=== PATIENT | male | born 1955 | race Asian ===

== ENCOUNTER 2019-03-02 09:11 | Day surgery (SDC) | payer OTHER ==
[2019-03-02] MEDS ORDERED: MIDAZOLAM 1 MG/ML 2 ML INJ ×2 (16:02)
[2019-03-02] MEDS ORDERED: FENTAnyl 50 MCG/ML VIAL (16:02)
== END 2019-03-02 15:20 | disposition home or self-care (01) ==
LOC: GIL 09:11
DX: Z12.11 Encounter for screening for malignant neoplasm of colon (principal); K64.8 Other hemorrhoids; D12.5 Benign neoplasm of sigmoid colon; K21.9 Gastro-esophageal reflux disease without esophagitis; I10 Essential (primary) hypertension; E11.9 Type 2 diabetes mellitus without complications
CPT/HCPCS: 43239; 82962; 88305